=== PATIENT | female | born 1955 | race Caucasian/White ===

== ENCOUNTER → 2025-04-07 11:44 | Outpatient (BNVA) | payer MEDICARE, SELFPAY | PROVIDERS: Visit Provider Internal Medicine | DX: Z13.220 Encounter for screening for lipoid disorders (principal); I10 Essential (primary) hypertension; Z90.710 Acquired absence of both cervix and uterus; R63.8 Other symptoms and signs concerning food and fluid intake; Z13.1 Encounter for screening for diabetes mellitus; Z82.49 Family history of ischemic heart disease and other diseases of the circulatory system; N94.9 Unspecified condition associated with female genital organs and menstrual cycle; E55.9 Vitamin D deficiency, unspecified | CPT/HCPCS: 36415; 80053; 80061; 82044; 82088; 82306; 82607; 83036; 83540; 84244; 84439; 84443; 84550; 85025 ==